=== PATIENT | female | born 1965 | race Caucasian/White ===

== ENCOUNTER 2025-08-10 08:38 | Outpatient (CLI) | payer OTHER ==
[~2025-08-10 08:38] MED LIST: KLONOPIN PO; ZYRTEC10 M3 PO; [UNRECOGNIZED DRUG - OTHER] PO
== END 2025-08-10 08:46 | disposition home or self-care (01) ==
LOC: MAMO-SONO 08:38
PROVIDERS: ATTEND Obstetrics & Gynecology Gynecology
DX: N64.4 Mastodynia (principal); Z12.31 Encounter for screening mammogram for malignant neoplasm of breast